=== PATIENT | male | born 1985 | race Caucasian/White ===

== ENCOUNTER 2020-05-16 16:09 | Emergency (ER) | payer SELFPAY ==
[~2020-05-16] VITALS: Ht 182.9 cm; Wt 129.3 kg
[2020-05-16 16:29] VITALS: Ht 182.9 cm; Wt 129.3 kg
[2020-05-16 18:02] VITALS: BP 138/86
== END 2020-05-16 18:02 | disposition home or self-care (01) ==
LOC: ED 16:09
DX: J18.9 Pneumonia, unspecified organism (principal)
CPT/HCPCS: J7512